=== PATIENT | female | born 1965 | race Caucasian/White ===

== ENCOUNTER 2017-11-06 17:43 | Emergency (ER) | payer BC, OTHER ==
[~2017-11-06] VITALS: Ht 160 cm; Wt 60.0 kg
[~2017-11-06 17:43] MED LIST: LEVAMIR; MACR100C PO; NOVOLOGP2 SQ; PRAV20TA67 PO
[2017-11-06 18:01] VITALS: BP 165/75; PULSE 76; RESP 18; TEMP 98.5; O2SAT 99
[2017-11-06] MEDS ORDERED: NOVOINJ3 SQ (20:20)
[2017-11-06] MEDS ORDERED: PRAV20TA2 PO (20:20)
[2017-11-06] MEDS ORDERED: CALC1TAB12 PO (20:20)
[2017-11-06] MEDS ORDERED: INSU1INJ5 SQ (20:20)
[2017-11-06] MEDS ORDERED: LIDOCAINE HCL 1% 20 ML VIAL ONE (20:24)
[2017-11-06] MEDS ORDERED: LIDOCAINE HCL 1% 50 ML VIAL INFIL ONE (20:30)
[2017-11-06] MEDS ORDERED: ACETAMINOPHEN 325 MG TAB PO ONE (20:30)
[2017-11-06] MEDS ORDERED: TYLE325T PO (21:02)
--- NOTE | 2017-11-06 21:02 | PD ---
HPI Chief Complaint: Laceration/Skin Injury Time Seen by Provider: 20:19 Travel History International Travel<30 days: No Contact w/Intl Traveler<30days: No Traveled to known affect area: No History of Present Illness HPI 52yo F with PMH of DM, arthritis presents to the ED with c/o right hand laceration after jumping a chain fence at 5pm today. Said she was running away from a dog and jumped up the fence and grab it and cut her hand. Up to date on tetanus. Denies any head trauma. Denies any fever, chest pain, sob, n/v, abdominal pain, focal weakness or numbness. PFSH Past Medical History High Cholesterol: Yes Diabetes: Yes Patient Takes Glucophage: No Diminished Hearing: No ?: Not Menopausal: Yes Tubal Ligation: Yes Past Surgical History Eye Surgery: Yes (RIGHT CATARACT) Gynecologic Surgery: Yes (TUBAL LIGATION) Social History Alcohol Use: Yes (WINE, ONE GLASS, BI-MONTHLY) Tobacco Use: No Substance Use: No Allergies-Medications (Allergen,Severity, Reaction): Coded Allergies: No Known Allergies (Verified , 10/21/14) Reported Meds & Prescriptions Reported Meds & Active Scripts Active Reported Calcium 500 +D (Calcium Carbonate-Cholecalciferol) 500-400 Mg-Unit Tab 1 Tab PO DAILY Pravastatin 20 Mg Tab 20 Mg PO HS Levemir Flextouch Pen Inj (Insulin Detemir) 300 unit/3 ML Pen 12 Units SQ Novolog Flexpen Inj (Insulin Aspart) 300 Unit/3 Ml Pen 5 Units SQ Review of Systems Except as stated in HPI: all other systems reviewed are Neg Physical Exam Narrative GENERAL: 52yo F in mild distress. SKIN: Focused skin assessment warm/dry. HEAD: Atraumatic. Normocephalic. EYES: Pupils equal and round. No scleral icterus. No injection or drainage. CARDIOVASCULAR: Regular rate and rhythm. No murmur appreciated. RESPIRATORY: No accessory muscle use. Clear to auscultation. Breath sounds equal bilaterally. GASTROINTESTINAL: Abdomen soft, non-tender, nondistended. MUSCULOSKELETAL: Right hand: +4cm laceration in [place]antiago surface of hand across 2- 4 metacarpal. FROM in all digits. Normal flexion, extension and opposition of thumb. Radial pulse 2+. Sensation intact. Left hand has small abrasion across the [place]antiago surface as well but no laceration that needs repair. NEUROLOGICAL: Awake and alert. No obvious cranial nerve deficits. Motor grossly within normal limits in all extremities. Sensation intact. Normal speech. PSYCHIATRIC: Appropriate mood and affect; insight and judgment normal. Data Data Last Documented VS Vital Signs Date Time Temp Pulse Resp B/P (MAP) Pulse Ox O2 Delivery O2 Flow Rate FiO2 11/06/17 20:22 (105) 11/06/17 18:01 98.5 76 18 99 Orders Orders Lidocaine 1% Inj (50 Ml) (Xylocaine 1% I (11/06/17 20:30) Lidocaine 1% Inj (Xylocaine 1% Inj) (11/06/17 20:24) Acetaminophen (Tylenol) (11/06/17 20:30) MDM Medical Decision Making Medical Screen Exam Complete: Yes Emergency Medical Condition: Yes Differential Diagnosis Laceration Narrative Course 52yo F here with laceration of right hand after grabbing the chain fence. Said tetanus is up to date. Laceration repaired. Pt given acetaminophen. Neurovascular intact. Return precautions given. Procedures Procedure Narrative LACERATION LOCATION: Santiago surface of right hand LENGTH: 4cm NUMBER OF STITCHES/JENNIFER: 8 REPAIR: The area of the laceration was prepped with chlohexadine and sterilely draped. The laceration was infiltrated with 1% lidocaine. The wound was copiously irrigated and explored without evidence of foreign body, tendon injury or neurovascular injury. The wound was closed using 5-0 nylon. This was a single layer repair. A sterile dressing was applied. The patient was advised to keep the dressing clean and dry. Patient tolerated the procedure well. Diagnosis Primary Impression: Hand laceration Qualified Codes: S61.411A - Laceration without foreign body of right hand, initial encounter Patient Instructions: General Instructions Departure Forms: Tests/Procedures Additional Instructions: Please follow up with your primary care physician or return to the ED in 10 days for suture removal. Please return to the ED if there is any signs of infection. Med/Other Pt SpecificInfo: Prescription(s) given Scripts Acetaminophen (Tylenol) 325 Mg Tab 650 MG PO Q6H Y for PAIN SCALE 1 TO 4, #20 TAB 0 Refills Prov: AbdulazizReyna 11/06/17 Disposition: 01 DISCHARGE HOME Condition: Stable Reyna Cintron DO November 06, 2017 21:02
== END 2017-11-06 21:50 | disposition home or self-care (01) ==
LOC: NEPD 17:43
DX: S61.411A Laceration without foreign body of right hand, initial encounter (principal); W45.8XXA Other foreign body or object entering through skin, initial encounter; Y93.39 Activity, other involving climbing, rappelling and jumping off
CPT/HCPCS: 12002